=== PATIENT | male | born 1995 | race Caucasian/White ===

== ENCOUNTER 2022-12-30 15:59 | Emergency (ER) | payer MEDICAID ==
[~2022-12-30] VITALS: Ht 182.9 cm; Wt 93.0 kg
[2022-12-30 16:00] VITALS: BP_SYST 124; PULSE 84; RESP 20; TEMP 98; O2SAT 98
[2022-12-31] MEDS ORDERED: CEPH-548 PO (15:00)
== END 2022-12-30 19:15 | disposition left against medical advice (07) ==
LOC: SED 15:59
DX: S41.111D Laceration without foreign body of right upper arm, subsequent encounter (principal); Z53.21 Procedure and treatment not carried out due to patient leaving prior to being seen by health care provider; X58.XXXD Exposure to other specified factors, subsequent encounter
CPT/HCPCS: 99281

== ENCOUNTER 2022-12-31 12:02 | Emergency (ER) | payer MEDICAID ==
[~2022-12-31] VITALS: Ht 182.9 cm; Wt 102.1 kg
[2022-12-31 12:15] VITALS: BP_SYST 154; PULSE 96; RESP 18; TEMP 98.3; O2SAT 97
[2022-12-31] MEDS ORDERED: BACITRACIN 1 GM OINT TP ONE (12:30)
[2022-12-31] MEDS ORDERED: DIPHTH,PERTUSS(ACELL),TET VAC 0.5 ML VIAL (Tdap) I.M. ONE (12:30)
[2022-12-31] MEDS ORDERED: CEPH-548 PO (15:00)
[2022-12-31 15:07] VITALS: BP_SYST 154; PULSE 96; RESP 18; TEMP 98.3; O2SAT 97
== END 2022-12-31 15:05 | disposition home or self-care (01) ==
LOC: SED 12:02
DX: S51.831A Puncture wound without foreign body of right forearm, initial encounter (principal); S50.851A Superficial foreign body of right forearm, initial encounter; Z79.899 Other long term (current) drug therapy; W22.8XXA Striking against or struck by other objects, initial encounter; Y93.89 Activity, other specified; Y92.89 Other specified places as the place of occurrence of the external cause; Y99.8 Other external cause status
CPT/HCPCS: 73090; 90715; 99283